=== PATIENT | female | born 1950 | race Caucasian/White ===

== ENCOUNTER 2018-10-13 21:29 | Emergency (ER) | payer BC ==
[2018-10-13 23:01] LABS: Absolute Lymphocytes (CBC) 1.3 K/uL (0.7-4.9); Absolute Monocytes 0.5 K/uL (0.1-1.3); Absolute Neutrophil 3.8 K/uL (1.8-8.0); Basophils % 0.4 % (0-1.3); Eosinophils % 3.5 % (0-4.4); Hematocrit 37.7 % (36.0-45.0); Lymphocytes % 22.5 % (15.3-44.8); MCH 30.8 pg (27.0-35.0); MCV 90.8 fL (80-100); MPV 9.1 fL (7.6-11.3); Monocytes % 9.2 % (3.3-12.3); RBC Red Blood Cell Count 4.15 M/uL (3.86-4.86)
[2018-10-13 23:19] LABS: ALT/SGPT 27 U/L (12-78); AST/SGOT 19 U/L (15-37); Albumin 3.3 g/dL (3.4-5.0); Alkaline Phosphatase 96 U/L (45-117); BUN Blood Urea Nitrogen 18 mg/dL (7-18); Bicarbonate 24 mmol/L (21-32); Bilirubin Direct < 0.1 mg/dL (0-0.2); Bilirubin Total 0.3 mg/dL (0.2-1.0); CKMB Creatine Kinase MB < 1.0 ng/mL (0.3-3.6); Creatine Phosphokinase 128 U/L (26-192); Glucose Level 133 mg/dL (74-106); Lipase 283 U/L (73-393); Magnesium 2.1 mg/dL (1.8-2.4); NT PRO-BNP 51 pg/mL (<125); Potassium 3.9 mmol/L (3.5-5.1); Protein, Total 7.1 g/dL (6.4-8.2); Sodium Level 144 mmol/L (136-145); Troponin (Emerg Dept Use Only) < 0.02 ng/mL (0.0-0.045)
[2018-10-13 23:23] LABS: Protime INR 0.92
[2018-10-14] MEDS ORDERED: HYDROCODONE/CHLORPHEN 5 ML/OSYR ONE (00:13)
[2018-10-14] MEDS ORDERED: AZITHROMYCIN 500 MG/250 ML BAG ONE (00:50)
[2018-10-14] MEDS ORDERED: CEFTRIAXONE/SWI 1gm 1 GM/10 ML SYR ONE (00:50)
--- NOTE | 2018-10-14 03:00 | EDPHYS ---
Physician Documentation [facility] Name: Becki Marshall Age: 68 yrs Sex: Female : 1950 Arrival Date: 10/13/2018 Time: 21:33 Bed 23 Private MD: ED Physician Clint Batista HPI: 10/14 05:32 This 68 yrs old Female presents to ER via Ambulatory with complaints of tw4 Shortness Of Breath, Cough. 05:32 The patient has shortness of breath at rest. Onset: The symptoms/episode began/occurred tw4 today. Duration: The symptoms are continuous, and are unchanged since they started. The patient's shortness of breath is aggravated by coughing, exertion. Associated signs and symptoms: Pertinent positives: productive cough, Pertinent negatives: chest pain, diaphoresis, dizziness, fever. Severity of symptoms: At their worst the symptoms were moderate in the emergency department the symptoms are unchanged. The patient has not experienced similar symptoms in the past. Historical: - Allergies: 10/13 22:20 Sulfa (Sulfonamide Antibiotics); aj1 - Home Meds: 22:20 olmesartan oral 40 mg oral once daily [Active]; amlodipine 2.5 mg tab 1 tab once daily aj1 [Active]; Zetia 10 mg Oral tab 1 tab once daily [Active]; rosuvastatin 10 mg oral tab 1 tab once daily [Active]; sertraline 100 mg oral tab 1 tab once daily [Active]; Nasacort 55 mcg Nasal spra daily [Active]; aspirin 81 mg Oral chew 1 tab once daily [Active]; Calcium Carbonate Oral daily [Active]; Valacyclovir Oral [Active]; Meclizine Oral [Active]; - PMHx: 22:20 Hypertension; Hyperlipidemia; aj1 - Immunization history:: Flu vaccine is not up to date. - Social history:: Smoking status: Patient/guardian denies using tobacco. - Ebola Screening: : Patient denies travel to an Ebola-affected area in the 21 days before illness onset. ROS: 10/14 05:32 Constitutional: Negative for fever, chills, and weight loss, Eyes: Negative for injury, tw4 pain, redness, and discharge, ENT: Negative for injury, pain, and discharge, Cardiovascular: Negative for chest pain, palpitations, and edema, Abdomen/GI: Negative for abdominal pain, nausea, vomiting, diarrhea, and constipation, Back: Negative for injury and pain, MS/Extremity: Negative for injury and deformity, Skin: Negative for injury, rash, and discoloration, Neuro: Negative for headache, weakness, numbness, tingling, and seizure. Respiratory: Positive for cough, dyspnea on exertion, wheezing, Negative for orthopnea, pleurisy. Exam: 05:32 Constitutional: This is a well developed, well nourished patient who is awake, alert, tw4 and in no acute distress. Head/Face: Normocephalic, atraumatic. Chest/axilla: Normal chest wall appearance and motion. Nontender with no deformity. No lesions are appreciated. Cardiovascular: Regular rate and rhythm with a normal S1 and S2. No gallops, murmurs, or rubs. Normal PMI, no JVD. No pulse deficits. Abdomen/GI: Soft, non-tender, with normal bowel sounds. No distension or tympany. No guarding or rebound. No evidence of tenderness throughout. Back: No spinal tenderness. No costovertebral tenderness. Full range of motion. MS/ Extremity: Pulses equal, no cyanosis. Neurovascular intact. Full, normal range of motion. Neuro: Awake and alert, GCS 15, oriented to person, place, time, and situation. Cranial nerves II-XII grossly intact. Motor strength 5/5 in all extremities. Sensory grossly intact. Cerebellar exam normal. Normal gait. 05:32 Respiratory: moderate respiratory distress is noted, Respirations: normal, Breath sounds: no acute changes. 06:45 ECG was reviewed by the Attending Physician. tw4 Vital Signs: 10/13 22:20 BP 120 / 78; Pulse 71; Resp 18; Temp 97.2; Pulse Ox 97% on R/A; Weight 79.38 kg (R); aj1 Height 5 ft. 2 in. (157.48 cm) (R); Pain 0/10; 22:23 BP 117 / 73 LA Sitting (auto/lg); Pulse 76; Resp 18 S; Pulse Ox 97% on R/A; Pain 0/10; jp3 23:34 BP 108 / 69; Pulse 61; Resp 18; Pulse Ox 100% on R/A; Pain 0/10; mg2 10/14 00:47 BP 111 / 73; Pulse 60; Resp 18; Pulse Ox 98% on R/A; Pain 0/10; mg2 01:48 BP 105 / 68; Pulse 61; Resp 18; Pulse Ox 98% on R/A; Pain 0/10; mg2 03:12 BP 110 / 70; Pulse 62; Resp 18; Pulse Ox 100% on R/A; Pain 0/10; mg2 10/13 22:20 Body Mass Index 32.01 (79.38 kg, 157.48 cm) aj1 MDM: 10/13 22:24 Patient medically screened. tw4 10/14 05:32 Differential diagnosis: Anemia Anxiety Reaction Unstable Angina. Antibiotic tw4 administration: The patient is discharged and will get outpatient antibiotics. Antibiotic administration: The patient is discharged and will get outpatient antibiotics. Data reviewed: vital signs, nurses notes. Data interpreted: Pulse oximetry: is not applicable for this patient encounter. Counseling: I had a detailed discussion with the patient and/or guardian regarding: the historical points, exam findings, and any diagnostic results supporting the discharge/admit diagnosis, lab results, radiology results. Medication response: tussionex. Response to treatment: the patient's symptoms have markedly improved after treatment, and as a result, I will discharge patient, administer antibiotics Zithromax. Special discussion: I discussed with the patient/guardian in detail that at this point there is no indication for admission to the hospital. It is understood, however, that if the symptoms persist or worsen the patient needs to return immediately for re-evaluation. 10/13 22:23 Order name: Blood Culture Adult (2) tw4 10/13 22:23 Order name: BMP tw4 10/13 22:23 Order name: CBC with Diff tw4 10/13 22:23 Order name: Ckmb tw4 10/13 22:23 Order name: CPK tw4 10/13 22:23 Order name: D-Dimer tw4 10/13 22:23 Order name: Hepatic Function tw4 10/13 22:23 Order name: Lipase tw4 10/13 22:23 Order name: Magnesium tw4 10/13 22:23 Order name: NT PRO-BNP tw4 10/13 22:23 Order name: PT-INR tw4 10/13 22:23 Order name: Ptt, Activated tw4 10/13 22:23 Order name: Troponin (emerg Dept Use Only) tw4 10/13 22:24 Order name: Blood Culture EDMS 10/13 22:23 Order name: XRAY CXR (1 view) tw4 10/13 22:23 Order name: EKG; Complete Time: :25 tw4 10/13 22:23 Order name: Cardiac monitoring; Complete Time: 23:01 tw4 10/13 22:23 Order name: EKG - Nurse/Tech; Complete Time: 23:01 tw4 10/13 22:23 Order name: IV Saline Lock; Complete Time: 23:01 tw4 10/13 22:23 Order name: Labs collected and sent; Complete Time: 23:01 tw4 10/13 22:23 Order name: O2 Per Protocol; Complete Time: 23:01 tw4 10/13 22:23 Order name: O2 Sat Monitoring; Complete Time: 23:01 tw4 10/13 22:24 Order name: Basic Metabolic Panel EDMS 10/13 22:24 Order name: CBC with Automated Diff EDMS 10/14 00:50 Order name: Thorax W/ Con EDMS EC:45 Rate is 69 beats/min. Rhythm is regular. DE interval is normal. QRS interval is normal. tw4 QT interval is normal. No Q waves. T waves are Normal. No ST changes noted. Clinical impression: NSR w/ Non-specific ST/T Changes and Abnormal EKG without significant change. Interpreted by me. Reviewed by me. Administered Medications: 00:04 Drug: Tussionex Pennkinetic ER 5 ml Route: PO; mg2 00:37 Follow up: Response: No adverse reaction mg2 00:46 Drug: AZITHromycin 500 mg Route: IVPB; Infused Over: 1 hrs; Site: right antecubital; mg2 01:58 Follow up: Response: No adverse reaction; IV Status: Completed infusion mg2 00:47 Drug: Rocephin - (cefTRIAXone) 1 grams Route: IVPB; Infused Over: 30 mins; Site: right mg2 antecubital; 01:57 Follow up: Response: No adverse reaction; IV Status: Completed infusion mg2 Disposition: 10/14/18 03:00 Discharged to Home. Impression: Acute bronchitis. - Condition is Stable. - Discharge Instructions: Acute Bronchitis, Adult. - Prescriptions for Tessalon Perles 100 mg Oral Capsule - take 1 capsule by ORAL route every 8 hours As needed; 15 capsule. Tussionex Pennkinetic ER 8- 10 mg/5 mL Oral Suspension, Sust. Release 12 hr - take 5 milliliter by ORAL route every 12 hours As needed; 120 milliliter. Zithromax Z- [place] 250 mg Oral Tablet - take 1 tablet by ORAL route as directed for 5 days Day 1 - take two (2) tablets one time. Day 2, 3, 4 , 5 take one (1) tablet once daily.; 6 tablet. Albuterol Sulfate 90 mcg/actuation - inhale 1-2 puff by INHALATION route every 4-6 hours; 1 Inhaler. - Medication Reconciliation Form, Thank You Letter, Antibiotic Education, Prescription Opioid Use form. - Follow up: Private Physician; When: Upon discharge from the Emergency Department; Reason: Recheck today's complaints, Continuance of care. - Problem is new. - Symptoms have improved. Signatures: Dispatcher [employer] [facility] Elva Walsh RN RN aj1 Clint Batista MD MD tw4 Shivam Garcia RN RN mg2 Corrections: (The following items were deleted from the chart) 02:14 02:10 Thorax W/ Con+CT.RAD.BRZ ordered. [facility] 03:13 03:00 10/14/2018 03:00 Discharged to Home. Impression: Acute bronchitis. Condition is mg2 Stable. Forms are Medication Reconciliation Form, Thank You Letter, Antibiotic Education, Prescription Opioid Use. Follow up: Private Physician; When: Upon discharge from the Emergency Department; Reason: Recheck today's complaints, Continuance of care. Problem is new. Symptoms have improved. tw4
--- NOTE | 2018-10-14 03:00 | ER ---
Nurse's Notes [facility] Name: Becki Marshall Age: 68 yrs Sex: Female : 1950 Arrival Date: 10/13/2018 Time: 21:33 Bed 23 Private MD: Diagnosis: Acute bronchitis Presentation: 10/13 22:15 Presenting complaint: Patient states: "For 2 weeks I've had all this sinus drainage, aj1 and I'm coughing my head off." Patient also reports shortness of breath, nasal congestion. Denies fever. Denies N/V/D. Transition of care: patient was not received from another setting of care. Onset of symptoms was October 2018. Risk Assessment: Do you want to hurt yourself or someone else? Patient reports no desire to harm self or others. Initial Sepsis Screen: Does the patient meet any 2 criteria? No. Patient's initial sepsis screen is negative. Does the patient have a suspected source of infection? Yes: Productive cough/pneumonia. Care prior to arrival: None. 22:15 Method Of Arrival: Ambulatory aj1 22:15 Acuity: MITCHELL 3 aj1 Triage Assessment: 22:20 General: Appears in no apparent distress. comfortable, Behavior is calm, cooperative, aj1 appropriate for age. Pain: Denies pain. Neuro: Level of Consciousness is awake, alert, obeys commands. Cardiovascular: Patient's skin is warm and dry. Respiratory: Reports shortness of breath on exertion cough that is Airway is patent Respiratory effort is even, unlabored, Respiratory pattern is regular, symmetrical, Onset: The symptoms/episode began/occurred 2 weeks ago, the patient has mild shortness of breath. Historical: - Allergies: 22:20 Sulfa (Sulfonamide Antibiotics); aj1 - Home Meds: 22:20 olmesartan oral 40 mg oral once daily [Active]; amlodipine 2.5 mg tab 1 tab once daily aj1 [Active]; Zetia 10 mg Oral tab 1 tab once daily [Active]; rosuvastatin 10 mg oral tab 1 tab once daily [Active]; sertraline 100 mg oral tab 1 tab once daily [Active]; Nasacort 55 mcg Nasal spra daily [Active]; aspirin 81 mg Oral chew 1 tab once daily [Active]; Calcium Carbonate Oral daily [Active]; Valacyclovir Oral [Active]; Meclizine Oral [Active]; - PMHx: 22:20 Hypertension; Hyperlipidemia; aj1 - Immunization history:: Flu vaccine is not up to date. - Social history:: Smoking status: Patient/guardian denies using tobacco. - Ebola Screening: : Patient denies travel to an Ebola-affected area in the 21 days before illness onset. Screenin:33 Abuse screen: Denies threats or abuse. Denies injuries from another. Nutritional mg2 screening: No deficits noted. Tuberculosis screening: No symptoms or risk factors identified. Fall Risk IV access (20 points). Assessment: 23:31 General: Appears in no apparent distress. comfortable, Behavior is calm, cooperative. mg2 Pain: Denies pain. Neuro: Level of Consciousness is awake, alert, obeys commands, Oriented to person, place, time, situation. Cardiovascular: Capillary refill < 3 seconds Patient's skin is warm and dry. Rhythm is regular. Respiratory: Airway is patent Respiratory effort is even, unlabored, Respiratory pattern is regular, symmetrical, Breath sounds are clear. Respiratory: Reports shortness of breath cough that is. GI: No signs and/or symptoms were reported involving the gastrointestinal system. : No signs and/or symptoms were reported regarding the genitourinary system. EENT: No signs and/or symptoms were reported regarding the EENT system. Derm: Skin is intact, is healthy with good turgor, Skin is pink, warm \\T\\ dry. normal. Musculoskeletal: No signs and/or symptoms reported regarding the musculoskeletal system. 10/14 01:48 Reassessment: Patient appears in no apparent distress at this time. Patient and/or mg2 family updated on plan of care and expected duration. Pain level reassessed. Patient is alert, oriented x 3, equal unlabored respirations, skin warm/dry/pink. Vital Signs: 10/13 22:20 BP 120 / 78; Pulse 71; Resp 18; Temp 97.2; Pulse Ox 97% on R/A; Weight 79.38 kg (R); aj1 Height 5 ft. 2 in. (157.48 cm) (R); Pain 0/10; 22:23 BP 117 / 73 LA Sitting (auto/lg); Pulse 76; Resp 18 S; Pulse Ox 97% on R/A; Pain 0/10; jp3 23:34 BP 108 / 69; Pulse 61; Resp 18; Pulse Ox 100% on R/A; Pain 0/10; mg2 1213 00:47 BP 111 / 73; Pulse 60; Resp 18; Pulse Ox 98% on R/A; Pain 0/10; mg2 01:48 BP 105 / 68; Pulse 61; Resp 18; Pulse Ox 98% on R/A; Pain 0/10; mg2 03:12 BP 110 / 70; Pulse 62; Resp 18; Pulse Ox 100% on R/A; Pain 0/10; mg2 10/13 22:20 Body Mass Index 32.01 (79.38 kg, 157.48 cm) aj1 ED Course: 10/13 21:33 Patient arrived in ED. ds1 22:17 Triage completed. aj1 22:20 Arm band placed on Patient placed in an exam room. aj1 22:22 Clint Batista MD is Attending Physician. tw4 22:29 Shivam Garcia, KAI is Primary Nurse. mg2 22:31 Bed in low position. Call light in reach. Side rails up X 1. Pulse ox on. NIBP on. jp3 22:41 XRAY CXR (1 view) In Process Unspecified. EDMS 23:33 No provider procedures requiring assistance completed. Inserted saline lock: 20 gauge mg2 in right antecubital area, using aseptic technique. Blood collected. 10/14 01:04 [facility] to [facility]. eh 01:06 Thorax W/ Con In Process Unspecified. EDMS 01:09 CT completed. Patient tolerated procedure well. [facility]. 03:12 IV discontinued, intact, bleeding controlled, No redness/swelling at site. Pressure mg2 dressing applied. Administered Medications: 00:04 Drug: Tussionex Pennkinetic ER 5 ml Route: PO; mg2 00:37 Follow up: Response: No adverse reaction mg2 00:46 Drug: AZITHromycin 500 mg Route: IVPB; Infused Over: 1 hrs; Site: right antecubital; mg2 01:58 Follow up: Response: No adverse reaction; IV Status: Completed infusion mg2 00:47 Drug: Rocephin - (cefTRIAXone) 1 grams Route: IVPB; Infused Over: 30 mins; Site: right mg2 antecubital; 01:57 Follow up: Response: No adverse reaction; IV Status: Completed infusion mg2 Outcome: 03:00 Discharge ordered by . tw4 03:13 Discharged to home ambulatory, with family. mg2 03:13 Condition: good 03:13 Discharge instructions given to patient, family, Instructed on discharge instructions, follow up and referral plans. medication usage, Demonstrated understanding of instructions, follow-up care, medications, Prescriptions given X 4. 03:13 Patient left the ED. mg2 Signatures: Dispatcher [employer] EDElva Pruitt RN RN aj1 Gumaro Garza Demi ds1 Clint Batista MD MD tw4 Shivam Garcia RN RN mg2 Franko Molina jp3
[2018-10-14 04:02] VITALS: TEMP 97.2
[2018-10-14 04:09] VITALS: BP 110/70; O2SAT 100
--- NOTE | 2018-10-14 05:11 | EKG ---
Test Date: 2018-10-13 Test Time: 22:51:09 Wheelchair Driver: MEASUREMENT RESULTS: Intervals: Rate: 69 RI: 166 QRSD: 96 QT: 378 QTc: 405 [place]: P: 55 RI: 166 QRS: 32 T: 55 INTERPRETIVE STATEMENTS: Normal sinus rhythm Incomplete right bundle branch block Abnormal ECG Compared to ECG 11/24/2012 09:50:55 Sinus bradycardia no longer present Electronically Signed On 10-14-18 05:10:58 [employer] by Jeremías Love
--- NOTE | 2018-10-14 08:07 | RAD REPORT ---
EXAM DESCRIPTION: RAD - Chest Single View - 10/13/2018 10:41 pm CLINICAL HISTORY: DYSPNEA Chest pain. COMPARISON: CHEST PA AND LAT 2 VIEW dated 11/04/2011; CHEST PA AND LAT 2 VIEW dated 02/09/2000; Thorax W / Con dated 10/14/2018 FINDINGS: Portable technique limits examination quality. The lungs are grossly clear. Left hemidiaphragmatic leaflet is elevated or a prominent diaphragmatic hernia is present. This appears new since 2012 comparative study. The heart is normal in size.Followu p CT imaging would be useful for further characterization.
--- NOTE | 2018-10-14 08:41 | RAD REPORT ---
EXAM DESCRIPTION: CT - Thorax W/ Con CLINICAL HISTORY: Chest pain COUGHING / SINUS DRAINAGE -- R/O PL EFFUSION COMPARISON: No comparisons FINDINGS: Subsegmental atelectasis is present in the left lung base. No focal pulmonary infiltrate s een. No pleural thickening or pleural effusion. No pneumothorax. No axillary, mediastinal or hilar adenopathy. No concerning bony finding. The stomach appears to completely intrathoracic in location with a compon ent of a organo-axial volvulus is also suspected of the stomach. All CT scans are performed using dose optimization technique as appropriate and may include automated exposure control or mA/KV adjustment according to patient size. 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
== END 2018-10-14 03:13 | disposition home or self-care (01) ==
LOC: ER 21:29
DX: J20.9 Acute bronchitis, unspecified (principal); I10 Essential (primary) hypertension; E78.5 Hyperlipidemia, unspecified; Z79.82 Long term (current) use of aspirin; Z88.2 Allergy status to sulfonamides
CPT/HCPCS: 36415; 71045; 71260; 80048; 80076; 82550; 82553; 83690; 83735; 83880; 84484; 85025; 85379; 85610; 85730; 87040; 93005; 96365; 96368; 99284; J0456; J0696; Q9967

== ENCOUNTER 2023-07-22 13:48 | Emergency (ER) | payer OTHER ==
--- NOTE | 2023-07-22 15:12 | RAD REPORT ---
EXAM DESCRIPTION: [facility] Pa And Lat (2 Views)07/22/2023 2:37 pm CLINICAL HISTORY: COUGH COMPARISON: Chest Single View dated 10/13/2018; CHEST PA AND LAT 2 VIEW dated 11/04/2011; CHEST PA AND LAT 2 VIEW dated 02/09/2000; Thorax W/ Con dated 10/14/2018 TECHNIQUE: Portable AP view of the chest. FINDINGS: The lungs are clear. Elevation of the left hemidiaphragm with left basilar atelectasis aga in seen. No pneumothorax or effusion. The cardiomediastinal contours are unremarkable. IMPRESSION: No acute cardiopulmonary process.
--- NOTE | 2023-07-22 15:52 | ER ---
Nurse's Notes [facility] Name: Becki Marshall Age: 73 yrs Sex: Female : 1950 Arrival Date: 07/22/2023 Time: 13:48 Bed 11 Private MD: Diagnosis: Acute bronchitis Presentation: 07/22 14:21 Chief complaint: Patient states: Nasal congestion, wheezing, cough, sore throat x 3-4 ph days. Coronavirus screen: Vaccine status: Patient reports being unvaccinated. Ebola Screen: No symptoms or risks identified at this time. Initial Sepsis Screen: Does the patient meet any 2 criteria? No. Patient's initial sepsis screen is negative. Does the patient have a suspected source of infection? No. Patient's initial sepsis screen is negative. Risk Assessment: Do you want to hurt yourself or someone else? Patient reports no desire to harm self or others. Onset of symptoms was July 22, 2023. 14:21 Method Of Arrival: Ambulatory ph 14:21 Acuity: MITCHELL 4 ph Historical: - Allergies: 14:23 Sulfa (Sulfonamide Antibiotics); ph - PMHx: 14:23 Hyperlipidemia; Hypertension; ph - Immunization history:: Adult Immunizations unknown. - Social history:: Smoking status: Patient denies any tobacco usage or history of. - Family history:: not pertinent. Screenin:02 [facility] ED Fall Risk Assessment (Adult) Score/Fall Risk Level 0 - 2 = Low Risk ll1 Oriented to surroundings, Maintained a safe environment, Educated pt \T\ family on fall prevention, incl call for assistance when getting out of bed, Hourly rounding (assess needs \T\ fall precautionary measures) done. Abuse screen: Denies threats or abuse. Nutritional screening: No deficits noted. Tuberculosis screening: No symptoms or risk factors identified. Assessment: 15:55 General: Appears uncomfortable, ill, Behavior is calm, cooperative, appropriate for ll1 age. Pain: Denies pain. Respiratory: Reports shortness of breath cough that is. EENT: Reports nasal congestion pain when swallowing. Vital Signs: 14:21 BP 151 / 74; Pulse 60; Resp 18; Temp 97.9; Pulse Ox 98% on R/A; Weight 74.84 kg; Height ph 5 ft. 2 in. ; 16:00 BP 129 / 82; Pulse 64; Resp 18; Pulse Ox 98% ; ll1 14:21 Body Mass Index 30.18 (74.84 kg, 157.48 cm) ph ED Course: 13:51 Patient arrived in ED. cc5 14:02 Parag Hudson MD is Attending Physician. rt 14:23 Triage completed. ph 14:24 Arm band placed on Patient placed in waiting room, Patient notified of wait time. X-ray ph ordered. 14:35 Chest Pa And Lat (2 Views) XRAY In Process Unspecified. EDMS 15:50 Patient placed in an exam room, on a stretcher. ll1 16:02 No provider procedures requiring assistance completed. Patient did not have IV access ll1 during this emergency room visit. 16:03 Patient has correct armband on for positive identification. Provided Education on: n/a. ll1 Administered Medications: No medications were administered Medication: 16:03 VIS not applicable for this client. ll1 Outcome: 15:52 Discharge ordered by MD. rt 16:02 Discharged to home ambulatory, ll1 16:02 Condition: stable 16:02 Discharge instructions given to patient, Instructed on discharge instructions, follow up and referral plans. medication usage, Demonstrated understanding of instructions, follow-up care, medications, Prescriptions given X 2, 16:03 Patient left the ED. ll1 Signatures: Dispatcher [employer] Lyla Macdonald, RN RN Fabiola Couch RN RN ll1 Parag Hudson MD MD rt Lennie Padilla cc5
--- NOTE | 2023-07-22 15:52 | EDPHYS ---
Physician Documentation [facility] Name: Becki Marshall Age: 73 yrs Sex: Female : 1950 Arrival Date: 07/22/2023 Time: 13:48 Bed 11 Private MD: ED Physician Parag Hudson HPI: 07/22 17:12 This 73 yrs old Female presents to ER via Ambulatory with complaints of Cold Symptoms. rt 17:12 Patient presents to the ED with cough, congestion, wheezing, sore throat with rt rhinorrhea for the past 3 days. Denies any difficulty breathing. Has not taken [id number] medicines to no relief. Denies other acute complaint at this time. Symptoms are mild in severity, no other aggravating relieving factors.. Historical: - Allergies: 14:23 Sulfa (Sulfonamide Antibiotics); ph - PMHx: 14:23 Hyperlipidemia; Hypertension; ph - Immunization history:: Adult Immunizations unknown. - Social history:: Smoking status: Patient denies any tobacco usage or history of. - Family history:: not pertinent. ROS: 17:12 Constitutional: Negative for fever, chills, and weight loss, Cardiovascular: Negative rt for chest pain, palpitations, and edema, Abdomen/GI: Negative for abdominal pain, nausea, vomiting, diarrhea, and constipation, MS/Extremity: Negative for injury and deformity, Skin: Negative for injury, rash, and discoloration, Neuro: Negative for headache, weakness, numbness, tingling, and seizure, Psych: Negative for depression, anxiety, suicide ideation, homicidal ideation, and hallucinations, 17:12 ENT: Positive for rhinorrhea, sore throat, 17:12 Respiratory: Positive for cough, wheezing, Exam: 17:12 Constitutional: This is a well developed, well nourished patient who is awake, alert, rt and in no acute distress. Head/Face: Normocephalic, atraumatic. Chest/axilla: Normal chest wall appearance and motion. Nontender with no deformity. No lesions are appreciated. Cardiovascular: Regular rate and rhythm with a normal S1 and S2. No gallops, murmurs, or rubs. Normal PMI, no JVD. No pulse deficits. Abdomen/GI: Soft, non-tender, with normal bowel sounds. No distension or tympany. No guarding or rebound. No evidence of tenderness throughout. Skin: Warm, dry with normal turgor. Normal color with no rashes, no lesions, and no evidence of cellulitis. MS/ Extremity: Pulses equal, no cyanosis. Neurovascular intact. Full, normal range of motion. Neuro: Awake and alert, GCS 15, oriented to person, place, time, and situation. Cranial nerves II-XII grossly intact. Motor strength 5/5 in all extremities. Sensory grossly intact. Cerebellar exam normal. Normal gait. Psych: Awake, alert, with orientation to person, place and time. Behavior, mood, and affect are within normal limits. 17:12 Respiratory: Wheezes heard in all lung [place], no respiratory distress, Vital Signs: 14:21 BP 151 / 74; Pulse 60; Resp 18; Temp 97.9; Pulse Ox 98% on R/A; Weight 74.84 kg; Height ph 5 ft. 2 in. ; 16:00 BP 129 / 82; Pulse 64; Resp 18; Pulse Ox 98% ; ll1 14:21 Body Mass Index 30.18 (74.84 kg, 157.48 cm) ph MDM: 14:23 Patient medically screened. rt 17:12 Differential Diagnosis Bronchitis, pneumonia. Data reviewed: vital signs, nurses notes, rt radiologic studies. Test considered but Not performed: EKG: Patient with wheezing, upper respiratory symptoms, no symptoms attributable to ischemia. Negative x-ray. Do not believe that labs, EKG indicated.. Care significantly affected by the following chronic conditions: Hypertension. Counseling: I had a detailed discussion with the patient and/or guardian regarding the historical points, exam findings, and any diagnostic results supporting the discharge/admit diagnosis, radiology results, the need for outpatient follow up, to return to the emergency department if symptoms worsen or persist or if there are any questions or concerns that arise at home. 07/22 14:24 Order name: Chest Pa And Lat (2 Views) XRAY; Complete Time: 15:18 rt Administered Medications: No medications were administered Disposition Summary: 07/22/23 15:52 Discharge Ordered Notes: Location: Home rt Problem: new rt Symptoms: are unchanged rt Condition: Stable rt Diagnosis - Acute bronchitis rt Followup: rt - With: Private Physician - When: 2 - 3 days - Reason: Discharge Instructions: - Discharge Summary Sheet rt - Acute Bronchitis, Adult rt Forms: - Medication Reconciliation Form rt - Thank You Letter rt - Antibiotic Education rt - Prescription Opioid Use rt - Patient Portal Instructions rt - Leadership Thank You Letter rt Signatures: Dispatcher [employer] Lyla Macdonald RN RN ph Parag Hudson MD MD rt
[2023-07-22 16:07] VITALS: BP 151/74; TEMP 97.9; O2SAT 98
== END 2023-07-22 16:03 | disposition home or self-care (01) ==
LOC: ER 13:48
DX: J20.9 Acute bronchitis, unspecified (principal); I10 Essential (primary) hypertension; Z88.2 Allergy status to sulfonamides
CPT/HCPCS: 71046